=== PATIENT | female | born 1975 | race Hispanic/Latino ===

== ENCOUNTER 2018-09-25 13:45 | Emergency (ER) | payer OTHER, SELFPAY ==
[2018-09-25 14:30] LABS: Absolute Lymphocytes (CBC) 2.1 K/uL (0.7-4.9); Absolute Monocytes 0.5 K/uL (0.1-1.3); Absolute Neutrophil 3.8 K/uL (1.8-8.0); Basophils % 0.5 % (0-1.3); Eosinophils % 3.2 % (0-4.4); Hematocrit 41.5 % (36.0-45.0); Lymphocytes % 31.5 % (15.3-44.8); MPV 9.9 fL (7.6-11.3); Monocytes % 6.9 % (3.3-12.3); RBC Red Blood Cell Count 4.91 M/uL (3.86-4.86)
[2018-09-25] MEDS ORDERED: MORPHINE 4 MG/ML SYR ONE (14:34)
[2018-09-25] MEDS ORDERED: ONDANSETRON 4 MG/2 ML VIAL ONE (14:34)
[2018-09-25] MEDS ORDERED: ASPIRIN 81 MG CHEWABLE TABLET ONE (14:34)
[2018-09-25] MEDS ORDERED: NA CHLORIDE 0.9% 500 ML ONE (14:34)
[2018-09-25] MEDS ORDERED: FAMOTIDINE 20 MG/2 ML VIAL IV ONE (14:35)
[2018-09-25 14:37] LABS: Urine Blood TRACE (NEG); Urine Glucose NEGATIVE (NEG); Urine Protein NEGATIVE (NEG); Urine pH 5.5 (5.0-7.0)
[2018-09-25 14:51] LABS: ALT/SGPT 23 U/L (12-78); AST/SGOT 18 U/L (15-37); Albumin 3.4 g/dL (3.4-5.0); Alkaline Phosphatase 91 U/L (45-117); BUN Blood Urea Nitrogen 13 mg/dL (7-18); Bicarbonate 27 mmol/L (21-32); Bilirubin Direct < 0.1 mg/dL (0-0.2); Bilirubin Total 0.1 mg/dL (0.2-1.0); Glucose Level 91 mg/dL (74-106); Lipase 99 U/L (73-393); Potassium 3.9 mmol/L (3.5-5.1); Protein, Total 7.3 g/dL (6.4-8.2); Sodium Level 143 mmol/L (136-145)
--- NOTE | 2018-09-25 15:10 | RAD REPORT ---
EXAM DESCRIPTION: US - Abdomen Exam Limited - 09/25/2018 2:40 pm CLINICAL HISTORY: Abdominal pain. COMPARISON: None. FINDINGS: Multiple gallstones. Gallbladder wall is not thickened. Common bile duct measures 7 millimeters. Several small stones within the duct IMPRESSION: Cholelithiasis without evidence of cholecystitis Choledocholithiasis with mild dilatation of the common bile duct
[2018-09-25 15:11] LABS: Troponin (Emerg Dept Use Only) < 0.02 ng/mL (0.0-0.045)
--- NOTE | 2018-09-25 16:02 | EDPHYS ---
Physician Documentation [facility] Name: Cari Blanchard Age: 43 yrs Sex: Female : 1975 Arrival Date: 09/25/2018 Time: 13:48 Bed 5 Private MD: Shree Nunn ED Physician José Miguel Wyman HPI: 09/25 14:20 This 43 yrs old Female presents to ER via Ambulatory with complaints of kdr Abdominal Pain, Back Pain. 14:21 This 43 yrs old Female presents to ER via Ambulatory with complaints of kdr Abdominal Pain. 14:21 The patient presents with abdominal pain in the epigastric area, in the right upper kdr quadrant. Onset: The symptoms/episode began/occurred yesterday, at 13:00, at an unknown time. The symptoms radiate to right back. Associated signs and symptoms: Pertinent positives: nausea and vomiting, chest pain, vomiting, Pertinent negatives: blood in stools, constipation, diarrhea, dysuria, fever, headache, hematuria, nausea, palpitations, shortness of breath, vaginal discharge, vomiting blood. The symptoms are described as achy, crampy, dull, vague, waxing/waning. Modifying factors: The symptoms are alleviated by nothing, the symptoms are aggravated by coughing, food, movement, pressure, touching the area. Severity of pain: At its worst the pain was severe in the emergency department the pain has improved moderately. The patient has experienced a previous episode, approximately 1.5 months ago, The Saturday before . 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 tw2 Historical: - Allergies: 13:56 No Known Allergies; ch - Home Meds: 13:56 vitamins [Active]; ch - PMHx: 13:56 None; ch - PSHx: 13:56 ; Hysterectomy; gastric sleeve 2016, abdominoplasty 2018; ch - Immunization history:: Adult Immunizations up to date. - Social history:: Smoking status: Patient/guardian denies using tobacco, Patient/guardian denies using alcohol, street drugs. - Ebola Screening: : Patient negative for fever greater than or equal to 101.5 degrees Fahrenheit, and additional compatible Ebola Virus Disease symptoms Patient denies exposure to infectious person Patient denies travel to an Ebola-affected area in the 21 days before illness onset No symptoms or risks identified at this time. ROS: 14:21 Constitutional: Negative for fever, chills, and weight loss, Eyes: Negative for injury, kdr pain, redness, and discharge, ENT: Negative for injury, pain, and discharge, Neck: Negative for injury, pain, and swelling, Respiratory: Negative for shortness of breath, cough, wheezing, and pleuritic chest pain, Back: Negative for injury and pain, : Negative for injury, bleeding, discharge, and swelling, MS/Extremity: Negative for injury and deformity, Skin: Negative for injury, rash, and discoloration, Neuro: Negative for headache, weakness, numbness, tingling, and seizure activity. 14:21 Cardiovascular: Positive for chest pain, of the anterior aspect of left upper chest, Negative for edema, orthopnea, palpitations, paroxysmal nocturnal dyspnea. 14:21 Abdomen/GI: Positive for abdominal pain, nausea and vomiting, abdominal cramps, of the epigastric area and right upper quadrant, Negative for diarrhea, constipation, abdominal cramps, abdominal distension, anorexia, dysphagia, hematemesis, black/tarry stool, rectal pain, rectal bleeding, bowel incontinence. Exam: 14:21 Constitutional: This is a well developed, well nourished patient who is awake, alert, kdr and in no acute distress. Head/Face: Normocephalic, atraumatic. Eyes: Pupils equal round and reactive to light, extra-ocular motions intact. Lids and lashes normal. Conjunctiva and sclera are non-icteric and not injected. Cornea within normal limits. Periorbital areas with no swelling, redness, or edema. Neck: Trachea midline, no thyromegaly or masses palpated, and no cervical lymphadenopathy. Supple, full range of motion without nuchal rigidity, or vertebral point tenderness. No Meningismus. Chest/axilla: Normal chest wall appearance and motion. Nontender with no deformity. No lesions are appreciated. Cardiovascular: Regular rate and rhythm with a normal S1 and S2. No gallops, murmurs, or rubs. Normal PMI, no JVD. No pulse deficits. Respiratory: Lungs have equal breath sounds bilaterally, clear to auscultation and percussion. No rales, rhonchi or wheezes noted. No increased work of breathing, no retractions or nasal flaring. Back: No spinal tenderness. No costovertebral tenderness. Full range of motion. Skin: Warm, dry with normal turgor. Normal color with no rashes, no lesions, and no evidence of cellulitis. MS/ Extremity: Pulses equal, no cyanosis. Neurovascular intact. Full, normal range of motion. Neuro: Awake and alert, GCS 15, oriented to person, place, time, and situation. Cranial nerves II-XII grossly intact. Motor strength 5/5 in all extremities. Sensory grossly intact. Cerebellar exam normal. Normal gait. Psych: Awake, alert, with orientation to person, place and time. Behavior, mood, and affect are within normal limits. 14:21 Abdomen/GI: Inspection: abdomen appears normal, obese Vital Signs: 13:56 BP 153 / 97; Pulse 81; Resp 12; Temp 97.4; Pulse Ox 98% on R/A; Weight 81.65 kg; Height ch 5 ft. 5 in. (165.10 cm); Pain 8/10; 15:09 BP 137 / 77; Pulse 67; Resp 14; Pulse Ox 100% on R/A; tw2 16:24 BP 125 / 78; Pulse 75; Resp 18 S; Pulse Ox 99% on R/A; Pain 0/10; jl7 13:56 Body Mass Index 29.95 (81.65 kg, 165.10 cm) ch MDM: 14:21 Data reviewed: vital signs, nurses notes, lab test result(s), radiologic studies. kdr 16:01 Patient medically screened. kdr 09/25 14:00 Order name: Basic Metabolic Panel; Complete Time: 15:19 kdr 09/25 14:00 Order name: CBC with Diff; Complete Time: 15:19 kdr 09/25 14:00 Order name: Creatinine for Radiology; Complete Time: 15:19 kdr 09/25 14:00 Order name: Hepatic Function; Complete Time: 15:19 kdr 09/25 14:00 Order name: Lipase; Complete Time: 15:19 kdr 09/25 14:15 Order name: Urine Dipstick--Ancillary (enter results); Complete Time: 15:19 hb 09/25 14:16 Order name: US Abdomen Limited; Complete Time: 15:19 kdr 09/25 14:52 Order name: Troponin (Emerg Dept Use Only); Complete Time: 15:19 EDMS 09/25 14:00 Order name: IV Saline Lock; Complete Time: 14:33 kdr 09/25 14:00 Order name: Labs collected and sent; Complete Time: 14:33 kdr 09/25 14:19 Order name: EKG - Nurse/Tech; Complete Time: 14:32 kdr Administered Medications: 14:30 Drug: NS 0.9% 500 ml Volume: 500 ml; Route: IV; Rate: 1 bolus; Site: left antecubital; jl7 15:15 Follow up: IV Status: Completed infusion jl7 14:31 Drug: Pepcid 20 mg Route: IVP; Site: left antecubital; jl7 15:15 Follow up: Response: No adverse reaction jl7 14:41 Drug: Aspirin Chewable Tablet 324 mg Route: PO; jl7 15:15 Follow up: Response: No adverse reaction jl7 16:22 Not Given (Patient Refused): Zofran 4 mg IVP once; over 2 minutes jl7 16:23 Not Given (Patient Refused): morphine 4 mg IVP once jl7 Disposition: 09/25/18 16:01 Discharged to Home. Impression: Cholelithiasis, Abdominal and pelvic pain. - Condition is Stable. - Discharge Instructions: Cholelithiasis, [id number], Abdominal Pain, Adult, [id number]. - Prescriptions for Bentyl 20 mg Oral Tablet - take 1 tablet by ORAL route every 6 hours As needed; 20 tablet. Pepcid 20 mg Oral Tablet - take 1 tablet by ORAL route every 12 hours for 5 days; 10 tablet. Zofran 4 mg Oral Tablet - take 1 tablet by ORAL route every 12 hours As needed; 6 tablet. Tramadol 50 mg Oral Tablet - take 1 tablet by ORAL route every 8 hours as needed; 12 tablet. - Medication Reconciliation Form, Thank You Letter, Antibiotic Education, Prescription Opioid Use, Work release form form. - Follow up: Shree Nunn MD; When: 2 - 3 days; Reason: If symptoms return, Further diagnostic work-up, Recheck today's complaints, Continuance of care, Re-evaluation by your physician. - Problem is an acute exacerbation. - Symptoms have improved. Signatures: Dispatcher [employer] [facility] Dorothy Bonner RN RN José Miguel Wyman MD MD [facility] Delaney Fiore RN RN tw2 Satish Nunn RN RN jl7 Corrections: (The following items were deleted from the chart) 14:52 14:20 TROPONIN (EMERG DEPT USE ONLY)+C.LAB.BRZ ordered. EDAZ EDMS 16:26 16:01 09/25/2018 16:01 Discharged to Home. Impression: Cholelithiasis; Abdominal and tw2 pelvic pain. Condition is Stable. Forms are Medication Reconciliation Form, Thank You Letter, Antibiotic Education, Prescription Opioid Use. Follow up: Shree Nunn; When: 2 - 3 days; Reason: If symptoms return, Further diagnostic work-up, Recheck today's complaints, Continuance of care, Re-evaluation by your physician. Problem is an acute exacerbation. Symptoms have improved. kdr
--- NOTE | 2018-09-25 16:02 | ER ---
Nurse's Notes [facility] Name: Cari Blanchard Age: 43 yrs Sex: Female : 1975 Arrival Date: 09/25/2018 Time: 13:48 Bed 5 Private MD: Shree Nunn Diagnosis: Cholelithiasis;Abdominal and pelvic pain Presentation: 09/25 13:53 Presenting complaint: Patient states: I have a gall stone already, pain to epigastric, ch radiates into back, with vomiting. started around 1300 yesterday, vomiting x4. Transition of care: patient was not received from another setting of care. Onset of symptoms was September 24, 2018 at 13:00. Risk Assessment: Do you want to hurt yourself or someone else? Patient reports no desire to harm self or others. Initial Sepsis Screen: Does the patient meet any 2 criteria? No. Patient's initial sepsis screen is negative. Does the patient have a suspected source of infection? No. Patient's initial sepsis screen is negative. Care prior to arrival: None. 13:53 Method Of Arrival: Ambulatory 13:53 Acuity: DAVID 3 ch Triage Assessment: 13:56 General: Appears in no apparent distress. uncomfortable, Behavior is cooperative, ch appropriate for age, anxious. Pain: Complains of pain in right upper quadrant Pain currently is 8 out of 10 on a pain scale. GI: Reports upper abdominal pain, nausea, vomiting. 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 tw2 Historical: - Allergies: 13:56 No Known Allergies; ch - Home Meds: 13:56 vitamins [Active]; ch - PMHx: 13:56 None; ch - PSHx: 13:56 ; Hysterectomy; gastric sleeve 2016, abdominoplasty 2018; ch - Immunization history:: Adult Immunizations up to date. - Social history:: Smoking status: Patient/guardian denies using tobacco, Patient/guardian denies using alcohol, street drugs. - Ebola Screening: : Patient negative for fever greater than or equal to 101.5 degrees Fahrenheit, and additional compatible Ebola Virus Disease symptoms Patient denies exposure to infectious person Patient denies travel to an Ebola-affected area in the 21 days before illness onset No symptoms or risks identified at this time. Screenin:30 Abuse screen: Denies threats or abuse. Denies injuries from another. Nutritional jl7 screening: No deficits noted. Tuberculosis screening: No symptoms or risk factors identified. Fall Risk IV access (20 points). Total Cruz Fall Scale indicates No Risk (0-24 pts). Assessment: 14:15 General: Appears in no apparent distress. uncomfortable, Behavior is calm, cooperative, jl7 appropriate for age. Pain: Complains of pain in right upper quadrant Pain radiates to right mid back Pain currently is 8 out of 10 on a pain scale. Quality of pain is described as aching, Pain began A few months ago Is continuous. Neuro: Level of Consciousness is awake, alert, obeys commands, Oriented to person, place, time, situation. Cardiovascular: Heart tones S1 S2 present Patient's skin is warm and dry. Chest pain is described as mild, quality is pressure, is located in right anterior chest wall episodes are continuous. Respiratory: Airway is patent Respiratory effort is even, unlabored, Respiratory pattern is regular, symmetrical, Breath sounds are clear bilaterally. Denies shortness of breath. GI: Bowel sounds present X 4 quads. Abd is soft X 4 quads Abdomen is tender to palpation in epigastric area and right upper quadrant. : No signs and/or symptoms were reported regarding the genitourinary system. EENT: No signs and/or symptoms were reported regarding the EENT system. Derm: Skin is pink, warm \\T\\ dry. 14:30 Reassessment: Pt reports "The pain is gone now and I don't want the morphine. I'll let jl7 you know if the pain comes back.". 15:30 Reassessment: Patient appears in no apparent distress at this time. No changes from jl7 previously documented assessment. Patient and/or family updated on plan of care and expected duration. Pain level reassessed. Patient is alert, oriented x 3, equal unlabored respirations, skin warm/dry/pink. 16:26 Reassessment: Patient appears in no apparent distress at this time. No changes from tw2 previously documented assessment. Patient and/or family updated on plan of care and expected duration. Pain level reassessed. Patient is alert, oriented x 3, equal unlabored respirations, skin warm/dry/pink. Patient states feeling better. Vital Signs: 13:56 BP 153 / 97; Pulse 81; Resp 12; Temp 97.4; Pulse Ox 98% on R/A; Weight 81.65 kg; Height 5 ft. 5 in. (165.10 cm); Pain 8/10; 15:09 BP 137 / 77; Pulse 67; Resp 14; Pulse Ox 100% on R/A; tw2 16:24 BP 125 / 78; Pulse 75; Resp 18 S; Pulse Ox 99% on R/A; Pain 0/10; jl7 13:56 Body Mass Index 29.95 (81.65 kg, 165.10 cm) ED Course: 13:48 Patient arrived in ED. as 13:48 Shree Nunn MD is Private Physician. as 13:55 Triage completed. ch 13:56 Arm band placed on left wrist. Patient placed in an exam room, on a stretcher. ch 13:58 José Miguel Wyman MD is Attending Physician. kdr 13:59 Satish Nunn RN is Primary Nurse. jl7 14:15 Missed attempt(s): 20 gauge in right forearm. Bleeding controlled, band aid applied, jl7 catheter tip intact. Missed attempt(s): 20 gauge in right antecubital area. Bleeding controlled, band aid applied, catheter tip intact. 14:20 Inserted saline lock: 22 gauge in left antecubital area, using aseptic technique. jl7 ,using aseptic technique. Inserted by Candi Hanna RN. 14:24 EKG done, by lead technologist in cytogenetics. reviewed by José Miguel Wyman MD. sm3 14:30 Patient has correct armband on for positive identification. Placed in gown. Bed in low jl7 position. Call light in reach. Side rails up X 1. film tests checker on. Pulse ox on. NIBP on. Warm blanket given. 14:40 US Abdomen Limited In Process Unspecified. EDMS 16:01 Shree Nunn MD is Referral Physician. kdr 16:25 No provider procedures requiring assistance completed. IV discontinued, intact, tw2 bleeding controlled, No redness/swelling at site. Pressure dressing applied. Administered Medications: 14:30 Drug: NS 0.9% 500 ml Volume: 500 ml; Route: IV; Rate: 1 bolus; Site: left antecubital; jl7 15:15 Follow up: IV Status: Completed infusion jl7 14:31 Drug: Pepcid 20 mg Route: IVP; Site: left antecubital; jl7 15:15 Follow up: Response: No adverse reaction jl7 14:41 Drug: Aspirin Chewable Tablet 324 mg Route: PO; jl7 15:15 Follow up: Response: No adverse reaction jl7 16:22 Not Given (Patient Refused): Zofran 4 mg IVP once; over 2 minutes jl7 16:23 Not Given (Patient Refused): morphine 4 mg IVP once jl7 Outcome: 16:01 Discharge ordered by . kdr 16:25 Discharged to home ambulatory. tw2 16:25 Condition: stable 16:25 Discharge instructions given to patient, Instructed on discharge instructions, follow up and referral plans. no drinking with medication, no driving heavy equipment, medication usage, Demonstrated understanding of instructions, follow-up care, medications, Prescriptions given X 4. 16:26 Patient left the ED. tw2 Signatures: Dispatcher [employer] EDMS Dorothy Bonner, KEI RN José Miguel Wyman MD MD kdr Martinez, Amelia as Wise, Tara, RN RN tw2 Satish Nunn RN RN jl7 Lisa Richard sm3 Corrections: (The following items were deleted from the chart) 15:16 14:32 Zofran 4 mg IVP in left antecubital 7 jl7 15:16 14:34 morphine 4 mg IVP in left antecubital jl7 jl7 16:24 15:30 BP 125 / 78; Pulse 75bpm; Resp 18bpm; Spontaneous; Pulse Ox 99% RA; Pain 0/10; [id number]
--- NOTE | 2018-09-26 07:49 | EKG ---
Test Date: 2018-09-25 Test Time: 14:15:04 [facility] Teacher: CELSA MEASUREMENT RESULTS: Intervals: Rate: 72 NH: 144 QRSD: 88 QT: 378 QTc: 413 Frederick: P: 47 NH: 144 QRS: 112 T: 42 INTERPRETIVE STATEMENTS: Normal sinus rhythm Left posterior fascicular block Cannot rule out Inferior infarct, age undetermined Abnormal ECG No previous ECG available for comparison Electronically Signed On 09-26-18 07:46:17 AUDIT CLERKS SUPERVISOR by Vadim Huff
== END 2018-09-25 16:26 | disposition home or self-care (01) ==
LOC: ER 13:45
DX: K80.20 Calculus of gallbladder without cholecystitis without obstruction (principal)
CPT/HCPCS: 36415; 76705; 80048; 80076; 81003; 83690; 84484; 85025; 93005; 96361; 96374; 99284; J2405

== ENCOUNTER 2020-08-14 10:06 | Emergency (ER) | payer OTHER ==
[2020-08-14] MEDS ORDERED: NA CHLORIDE 0.9% 1,000 ML ONE (11:15)
[2020-08-14] MEDS ORDERED: KETOROLAC 30 MG/ML INJ ONE (11:15)
[2020-08-14] MEDS ORDERED: HYDROCODONE/CHLORPHEN 5 ML/OSYR ONE (11:15)
[2020-08-14 11:18] LABS: Absolute Lymphocytes (CBC) 0.9 K/uL (0.7-4.9); Basophils % 0.2 % (0-1.3); Hematocrit 39.9 % (36.0-45.0); Lymphocytes % 14.5 % (15.3-44.8); MPV 9.8 fL (7.6-11.3); RBC Red Blood Cell Count 4.95 M/uL (3.86-4.86)
[2020-08-14 11:25] LABS: Protime INR 1.06
[2020-08-14 11:29] LABS: ALT/SGPT 22 U/L (12-78); AST/SGOT 32 U/L (15-37); Alkaline Phosphatase 70 U/L (45-117); BUN Blood Urea Nitrogen 18 mg/dL (7-18); Bicarbonate 26 mmol/L (21-32); Bilirubin Direct < 0.1 mg/dL (0-0.2); Bilirubin Total 0.3 mg/dL (0.2-1.0); Glucose Level 106 mg/dL (74-106); Magnesium 2.3 mg/dL (1.8-2.4); NT PRO-BNP 18 pg/mL (<125); Potassium 3.6 mmol/L (3.5-5.1); Protein, Total 7.3 g/dL (6.4-8.2); Sodium Level 138 mmol/L (136-145); Troponin (Emerg Dept Use Only) < 0.02 ng/mL (0.0-0.045)
--- NOTE | 2020-08-14 11:36 | RAD REPORT ---
EXAM DESCRIPTION: RAD - Chest Single View - 08/14/2020 11:25 am CLINICAL HISTORY: Chest pain;Cough Chest pain. COMPARISON: CHEST SINGLE VIEW dated 08/15/2015; CHEST PA AND LAT 2 VIEW dated 01/19/2015 FINDINGS: Portable technique limits examination quality. The lungs are underinflated with mild to moderate bilateral interstitial lung opacities, greater on t he left, most compatible with viral pneumonitis/ bronchitis. The heart is normal in size. No displace d fractures.
[2020-08-14] MEDS ORDERED: ALBUTEROL INHALER 60 PUFF/8 GM IH ONE (12:15)
--- NOTE | 2020-08-14 12:31 | EDPHYS ---
Physician Documentation [facility] Name: Cari Mccarty Age: 45 yrs Sex: Female : 1975 Arrival Date: 08/14/2020 Time: 10:09 Bed 18 Private MD: ED Physician Moi Akhtar HPI: 08/14 10:45 This 45 yrs old Female presents to ER via Ambulatory with complaints of cp COVID+, Cough, Chest Pain. 10:45 The patient or guardian reports chest pain that is located primarily in the anterior cp chest wall. Onset: yesterday. Associated signs and symptoms: Pertinent positives: cough, shortness of breath, Pertinent negatives: abdominal pain, diaphoresis, lower extremity pain, lower extremity swelling, syncope, vomiting. 10:45 Patient reports she tested positive for COVID-19 this past Saturday. Currently taking cp prednisone and Zithromax. 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 - Social history:: Smoking status: Patient denies any tobacco usage or history of. ROS: 10:50 Constitutional: Negative for fever, poor PO intake. cp 10:50 Eyes: Negative for injury, pain, redness, and discharge. cp 10:50 ENT: Negative for ear pain, sore throat, difficulty swallowing, difficulty handling secretions. 10:50 Cardiovascular: Positive for chest pain, with cough, Negative for edema, palpitations. 10:50 Respiratory: Positive for cough, "sounds productive", shortness of breath, on exertion. 10:50 Abdomen/GI: Negative for abdominal pain, vomiting, diarrhea, constipation. 10:50 Skin: Negative for rash. 10:50 Neuro: Negative for altered mental status, weakness. 10:50 All other systems are negative. Exam: 10:30 ECG was reviewed by the Attending Physician. cp 10:55 Constitutional: The patient appears in no acute distress, alert, awake, cp non-diaphoretic, non-toxic, well developed, well nourished, uncomfortable. 10:55 Head/Face: Normocephalic, atraumatic. cp 10:55 Eyes: Periorbital structures: appear normal, Conjunctiva: normal, no exudate, no injection, Sclera: no appreciated abnormality, Lids and lashes: appear normal, bilaterally. 10:55 ENT: External ear(s): are unremarkable, Ear canal(s): are normal, clear, TM's: dullness, bilaterally, Nose: is normal, Mouth: Lips: moist, Oral mucosa: moist, Posterior pharynx: Airway: no evidence of obstruction, patent. 10:55 Neck: ROM/movement: is normal, is supple, without pain, no range of motions limitations, no meningismus. 10:55 Chest/axilla: Inspection: normal, Palpation: is normal, no crepitus, no tenderness. 10:55 Cardiovascular: Rate: normal, Rhythm: regular, Edema: is not appreciated, JVD: is not appreciated. 10:55 Respiratory: the patient does not display signs of respiratory distress, Respirations: labored breathing, that is mild, intercostal retractions, are absent, Breath sounds: bronchial sounds, that are mild, are heard diffusely, decreased breath sounds, are not appreciated, stridor, is not appreciated, wheezing: is not appreciated. 10:55 Abdomen/GI: Inspection: abdomen appears normal, Palpation: abdomen is soft and non-tender, in all quadrants. 10:55 Back: pain, is absent, ROM is normal. 10:55 Neuro: Orientation: to person, place \\T\\ time. Mentation: is normal, Motor: moves all fours, strength is normal. Vital Signs: 10:15 Weight 87.09 kg; Height 5 ft. 5 in. (165.10 cm); sv 10:20 BP 102 / 67; Pulse 95; Resp 20; Pulse Ox 95% ; Pain 0/10; ll1 12:59 BP 104 / 66; Pulse 92; Resp 20; Temp 98.6; Pulse Ox 97% ; Pain 0/10; ll1 10:15 Body Mass Index 31.95 (87.09 kg, 165.10 cm) sv MDM: 10:29 Patient medically screened. cp 11:00 Differential diagnosis: acute myocardial infarction, acute pericarditis, chest wall cp pain, pleurisy, pneumonia, pneumothorax, pulmonary embolus. 12:30 Data reviewed: vital signs, nurses notes, lab test result(s), EKG, radiologic studies, cp plain films. 12:30 Test interpretation: by ED physician or midlevel provider: ECG, plain radiologic cp studies. Counseling: I had a detailed discussion with the patient and/or guardian regarding: the historical points, exam findings, and any diagnostic results supporting the discharge/admit diagnosis, lab results, radiology results, to return to the emergency department if symptoms worsen or persist or if there are any questions or concerns that arise at home. Response to treatment: the patient's symptoms have markedly improved after treatment, and as a result, I will discharge patient. 12:30 ED course: VSS. Patient reports symptoms improved. No signs of respiratory distress and cp patient appears non-toxic. Will discharge to home for continued monitoring. Oxygen sats 95% on RA. 08/14 10:38 Order name: Basic Metabolic Panel; Complete Time: 11:36 cp 08/14 10:38 Order name: CBC with Diff; Complete Time: 11:36 08/14 10:38 Order name: LFT's; Complete Time: 11:36 cp 08/14 10:38 Order name: Magnesium; Complete Time: 11:36 cp 08/14 10:38 Order name: NT PRO-BNP; Complete Time: 11:36 cp 08/14 10:38 Order name: PT-INR; Complete Time: 11:36 cp 08/14 10:38 Order name: Troponin (emerg Dept Use Only); Complete Time: 11:36 cp 08/14 10:38 Order name: XRAY Chest (1 view); Complete Time: 12:23 cp 08/14 10:38 Order name: D-Dimer; Complete Time: 11:36 cp 08/14 10:38 Order name: Influenza Screen (a \\T\\ B); Complete Time: 12:23 cp 08/14 10:38 Order name: EKG; Complete Time: 10:39 cp 08/14 10:38 Order name: Cardiac monitoring; Complete Time: 10:57 cp 08/14 10:38 Order name: EKG - Nurse/Tech; Complete Time: 10:57 cp 08/14 10:38 Order name: IV Saline Lock; Complete Time: 10:57 cp 08/14 10:38 Order name: Labs collected and sent; Complete Time: 10:57 cp 08/14 10:38 Order name: O2 Per Protocol; Complete Time: 10:57 cp 08/14 10:38 Order name: O2 Sat Monitoring; Complete Time: 10:57 cp 08/14 10:38 Order name: Urine Dipstick-Ancillary (obtain specimen); Complete Time: 13:01 cp EC:30 Rate is 103 beats/min. Rhythm is regular. ME interval is normal. QRS interval is cp normal. QT interval is normal. T waves are Inverted in lead aVR. Interpreted by me. Reviewed by me. Administered Medications: 11:08 Drug: NS 0.9% 1000 ml Route: IV; Rate: 1 bolus; Site: left antecubital; 1 13:00 Follow up: Response: No adverse reaction; RASS: Alert and Calm (0); IV Status: ll1 Completed infusion; IV Intake: 1000ml 11:08 Drug: Tussionex Pennkinetic ER 5 ml Route: PO; ll1 13:02 Follow up: Response: No adverse reaction; RASS: Alert and Calm (0) 1 11:08 Drug: TORadol - Ketorolac 15 mg {Note: rass 0.} Route: IVP; Site: left antecubital; 1 13:02 Follow up: Response: No adverse reaction; RASS: Alert and Calm (0) ll1 12:03 Drug: Albuterol HFA Inhaler 2 puffs Route: Inhalation; ll1 13:00 Follow up: Response: No adverse reaction; RASS: Alert and Calm (0) ll1 Disposition: 13:16 Co-signature as Attending Physician, Moi Akhtar MD. rn Disposition: 08/14/20 12:30 Discharged to Home. Impression: Coronavirus infection, unspecified, Pneumonia due to other specified infectious organisms. - Condition is Stable. - Discharge Instructions: COVID-19. - Prescriptions for Albuterol Sulfate 90 mcg/actuation - inhale 1-2 puff by INHALATION route every 4-6 hours; 1 Inhaler. Guaifenesin AC 10- 100 mg/5 mL Oral Liquid - take 10 milliliters by ORAL route every 4 hours As needed; 200 milliliter. - Medication Reconciliation Form, Thank You Letter, Antibiotic Education, Prescription Opioid Use form. - Follow up: Private Physician; When: 2 - 3 days; Reason: Worsening of condition. - Problem is new. - Symptoms have improved. Signatures: Dispatcher [employer] Comfort Brenner RN RN Moi Akhtar MD MD rn Page, Corey, PA PA cp Lewis, Lynsay RN RN ll1 Corrections: (The following items were deleted from the chart) 13:01 10:38 Urine Test ordered. cp ll1 13:02 12:30 08/14/2020 12:30 Discharged to Home. Impression: Coronavirus infection, ll1 unspecified; Pneumonia due to other specified infectious organisms. Condition is Stable. Forms are Medication Reconciliation Form, Thank You Letter, Antibiotic Education, Prescription Opioid Use. Follow up: Private Physician; When: 2 - 3 days; Reason: Worsening of condition. Problem is new. Symptoms have improved. cp
--- NOTE | 2020-08-14 12:31 | ER ---
Nurse's Notes [facility] Name: Cari Mccarty Age: 45 yrs Sex: Female : 1975 Arrival Date: 08/14/2020 Time: 10:09 Bed 18 Private MD: Diagnosis: Coronavirus infection, unspecified;Pneumonia due to other specified infectious organisms Presentation: 08/14 10:15 Chief complaint: Patient states: cough, chest pain, fever Tmax 100 since Saturday. sv COVID-19+ (tested on Saturday). Coronavirus screen: Client denies travel out of the [place] in the last 14 days. Client reports previous positive COVID test result. Date of collection: August 09, 2020. Ebola Screen: No symptoms or risks identified at this time. Risk Assessment: Do you want to hurt yourself or someone else? Patient reports no desire to harm self or others. Onset of symptoms was August 09, 2020. 10:15 Method Of Arrival: Ambulatory sv 10:15 Acuity: DAVID 3 sv 10:20 Initial Sepsis Screen: Does the patient meet any 2 criteria? HR > 90 bpm. No. Patient's ll1 initial sepsis screen is negative. Does the patient have a suspected source of infection? Yes: Productive cough/pneumonia. 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 - Social history:: Smoking status: Patient denies any tobacco usage or history of. Screenin:10 Abuse screen: Denies threats or abuse. Nutritional screening: No deficits noted. ll1 Tuberculosis screening: No symptoms or risk factors identified. Fall Risk None identified. IV access (20 points). Total Cruz Fall Scale indicates No Risk (0-24 pts). Assessment: 11:11 General: Appears ill, Behavior is calm, cooperative, appropriate for age. Pain: ll1 Complains of pain in chest Pain does not radiate. Quality of pain is described as aching, Pain began 2-3 days ago. Is episodic, Aggravated by cough. Neuro: No deficits noted. Cardiovascular: Reports chest pain, Heart tones S1 S2 Capillary refill < 3 seconds Clubbing of nail beds is absent Patient's skin is warm and dry. Respiratory: Reports cough that is Airway is patent Trachea midline Respiratory effort is even, unlabored, Respiratory pattern is regular, symmetrical, Breath sounds are clear bilaterally. GI: Abdomen is flat, Bowel sounds present X 4 quads. Abd is soft and non tender X 4 quads. Reports diarrhea. 12:10 Reassessment: Patient and/or family updated on plan of care and expected duration. Pain ll1 level reassessed. Patient is alert, oriented x 3, equal unlabored respirations, skin warm/dry/pink. Vital Signs: 10:15 Weight 87.09 kg; Height 5 ft. 5 in. (165.10 cm); sv 10:20 BP 102 / 67; Pulse 95; Resp 20; Pulse Ox 95% ; Pain 0/10; ll1 12:59 BP 104 / 66; Pulse 92; Resp 20; Temp 98.6; Pulse Ox 97% ; Pain 0/10; ll1 10:15 Body Mass Index 31.95 (87.09 kg, 165.10 cm) sv ED Course: 10:09 Patient arrived in ED. mr 10:11 Leandro Yoo PA is PHCP. cp 10:11 Moi Akhtar MD is Attending Physician. cp 10:13 Henrik Andino, KEI is Primary Nurse. ll1 10:14 Arm band placed on Patient placed in an exam room, on a stretcher. ll1 10:16 Triage completed. sv 10:27 EKG done, by ED staff, reviewed by Leandro ANGUIANO. dh3 10:30 Inserted saline lock: 20 gauge in left antecubital area, using aseptic technique. Blood ll1 collected. 11:11 Patient has correct armband on for positive identification. Bed in low position. Call ll1 light in reach. Side rails up X2. childcare aide on. Pulse ox on. NIBP on. 11:12 Patient maintains SpO2 saturation greater than 95% on room air. ll1 11:26 XRAY Chest (1 view) In Process Unspecified. EDMS 13:00 IV discontinued, intact, bleeding controlled, No redness/swelling at site. Pressure ll1 dressing applied. 13:00 No provider procedures requiring assistance completed. ll1 Administered Medications: 11:08 Drug: NS 0.9% 1000 ml Route: IV; Rate: 1 bolus; Site: left antecubital; 1 13:00 Follow up: Response: No adverse reaction; RASS: Alert and Calm (0); IV Status: ll1 Completed infusion; IV Intake: 1000ml 11:08 Drug: Tussionex Pennkinetic ER 5 ml Route: PO; 1 13:02 Follow up: Response: No adverse reaction; RASS: Alert and Calm (0) 1 11:08 Drug: TORadol - Ketorolac 15 mg {Note: rass 0.} Route: IVP; Site: left antecubital; 1 13:02 Follow up: Response: No adverse reaction; RASS: Alert and Calm (0) 1 12:03 Drug: Albuterol HFA Inhaler 2 puffs Route: Inhalation; 1 13:00 Follow up: Response: No adverse reaction; RASS: Alert and Calm (0) [facility] Intake: 13:00 IV: 1000ml; Total: 1000ml. [facility] Outcome: 12:30 Discharge ordered by . abbey 13:02 Patient left the ED. [facility] 13:02 Discharged to home ambulatory. 1 13:02 Condition: stable 13:02 Discharge instructions given to patient, Instructed on discharge instructions, follow up and referral plans. medication usage, Demonstrated understanding of instructions, follow-up care, medications, Prescriptions given X 2. Signatures: Dispatcher [employer] Comfort Brenner, RN Alicia Montemayor Corey, PA PA cp Herrera, Deanna [facility] Henrik Andino RN RN [facility]
[2020-08-14] MEDS ORDERED: ALBUTEROL 2.5 MG/3 ML NEB SOL ONE (13:54)
[2020-08-14 16:48] VITALS: BP 104/66; TEMP 98.6; O2SAT 97
== END 2020-08-14 13:02 | disposition home or self-care (01) ==
LOC: ER 10:06
DX: U07.1 COVID-19 (principal); J16.8 Pneumonia due to other specified infectious organisms
CPT/HCPCS: 96361; 93005; 85025; 80048; 36415; 83735; 85610; 85379; 80076; 84484; 83880; 87804 ×2; 71045; 96374; 99285; J7030

== ENCOUNTER 2022-11-13 19:55 | Emergency (ER) | payer OTHER ==
--- OUTSIDE RECORDS SUMMARY | 2022-11-13 19:58 | XMS REPORT | Continuity of Care Document ---
:1975 Author Organization [facility] t Address [address] [place] [address] Dr. 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 Allergies, Adverse Reactions, Alerts This patient has no known allergies or adverse reactions. Medications This patient has no known medications. Procedures This patient has no known procedures. Encounters Start End Encounter Admission Attending Care Care Encounter Source Date/Time Date/Time Type Type Clinicians Facility Department ID 2022-12-03 2022-12-03 Outpatient KATHY HUGO [id number] Ada Gibbons 10:30:00 10:30:00 BRANDEN dial Results This patient has no known results.
[2022-11-13 21:56] LABS: Absolute Lymphocytes (CBC) 2.6 K/uL (0.7-4.9); Hematocrit 36.8 % (36.0-45.0); Lymphocytes % 39.4 % (15.3-44.8); MCV 81.3 fL (80-100); MPV 8.7 fL (7.6-11.3); RBC Red Blood Cell Count 4.52 M/uL (3.86-4.86)
[2022-11-13 21:58] LABS: Protime INR 0.98
[2022-11-13 22:09] LABS: Magnesium 2.4 mg/dL (1.6-2.4); Potassium 3.6 mmol/L (3.5-5.1); Troponin High Sensitivity 4.3 pg/mL (<58.9)
--- NOTE | 2022-11-13 22:12 | RAD REPORT ---
EXAM DESCRIPTION: CT - Head Brain Wo Cont - 11/13/2022 10:03 pm CLINICAL HISTORY: HEADACHE COMPARISON: No comparisons TECHNIQUE: Noncontrast head CT images ad were obtained without IV contrast. Multiplanar reformats we re generated and reviewed. All CT scans are performed using dose optimization technique as appropriate and may include automated exposure control or mA/KV adjustment according to patient size. FINDINGS: No intracranial hemorrhage, mass, or edema. Midline structures are unremarkable. Normal ventricular caliber for age. Puga-white matter differentiation is preserved, without evidence of acute infarct. No abnormal extra- axial fluid collections. Mastoid air cells and visualized portions of the paranasal sinuses are clear. No acute bony findings. IMPRESSION: No evidence of an acute intracranial process.
[2022-11-13] MEDS ORDERED: lisinopriL 20 MG TAB ONE (23:11)
[2022-11-13] MEDS ORDERED: KETOROLAC 30 MG/ML INJ ONE (23:11)
[2022-11-13] MEDS ORDERED: NA CHLORIDE 0.9% 50 ML ONE (23:11)
[2022-11-13] MEDS ORDERED: DIPHENHYDRAMINE 50 MG/ML VIAL ONE (23:11)
[2022-11-13] MEDS ORDERED: METOCLOPRAMIDE 10 MG/2mL INJ ONE (23:11)
--- NOTE | 2022-11-13 23:58 | ER ---
Nurse's Notes [facility] Name: Cari Mccarty Age: 47 yrs Sex: Female : 1975 Arrival Date: 11/13/2022 Time: 19:59 Bed 9 Private MD: Diagnosis: Hypertensive heart disease without heart failure;Headache Presentation: 11/13 20:10 Chief complaint: Patient states: Posterior headache pain 9 that radiates to neck,onset pf1 3 days. Patient stated having elevated BP and is currently out of her Lisinopril medication for 4 months. Patient stated has an appointment Dr. Osman on December 03 to have to Lisinopril refill. Patient denies any Chest pain. Coronavirus screen: Vaccine status: Patient reports receiving the 2nd dose of the covid vaccine. 3 doses. Ebola Screen: Patient negative for fever greater than or equal to 101.5 degrees Fahrenheit, and additional compatible Ebola Virus Disease symptoms. Initial Sepsis Screen: Does the patient meet any 2 criteria? No. Patient's initial sepsis screen is negative. Does the patient have a suspected source of infection? No. Patient's initial sepsis screen is negative. Risk Assessment: Do you want to hurt yourself or someone else? Patient reports no desire to harm self or others. 20:10 Method Of Arrival: Ambulatory pf1 20:10 Acuity: DAVID 3 pf1 11/14 00:05 Onset of symptoms was November 13, 2022. eh3 Triage Assessment: 00:04 Pain: Also complains of. eh3 Historical: - Allergies: 11/13 20:15 No Known Allergies; pf1 - Immunization history:: Adult Immunizations up to date. - Social history:: Smoking status: unknown. Screenin:45 [facility] ED Fall Risk Assessment (Adult) Score/Fall Risk Level 0 - 2 = Low Risk. Abuse eh3 screen: Denies threats or abuse. Denies injuries from another. Nutritional screening: No deficits noted. Tuberculosis screening: No symptoms or risk factors identified. Assessment: 21:45 General: Appears in no apparent distress. uncomfortable, Behavior is cooperative, eh3 appropriate for age. Pain: Complains of pain in head. Neuro: Level of Consciousness is awake, alert, obeys commands, Oriented to person, place, time, situation. Cardiovascular: Capillary refill < 3 seconds Patient's skin is warm and dry. Respiratory: Airway is patent Respiratory effort is even, unlabored, Respiratory pattern is regular, symmetrical. GI: No signs and/or symptoms were reported involving the gastrointestinal system. Abdomen is round non-distended. : No signs and/or symptoms were reported regarding the genitourinary system. EENT: No signs and/or symptoms were reported regarding the EENT system. Derm: No signs and/or symptoms reported regarding the dermatologic system. Skin is pink, warm \T\ dry. Musculoskeletal: No signs and/or symptoms reported regarding the musculoskeletal system. Circulation, motion, and sensation intact. Range of motion: intact in all extremities. 22:45 Reassessment: Patient appears in no apparent distress at this time. Patient and/or 3 family updated on plan of care and expected duration. Pain level reassessed. Patient is alert, oriented x 3, equal unlabored respirations, skin warm/dry/pink. 23:45 Reassessment: Patient appears in no apparent distress at this time. Patient and/or 3 family updated on plan of care and expected duration. Pain level reassessed. Patient is alert, oriented x 3, equal unlabored respirations, skin warm/dry/pink. Patient states symptoms have improved. Vital Signs: 20:10 BP 168 / 92; Pulse 80; Resp 18; Temp 97.8; Pulse Ox 98% on R/A; Weight 81.65 kg; Height pf1 5 ft. 5 in. (165.10 cm); Pain 9/10; 21:45 BP 149 / 94; Pulse 81; Resp 14; Pulse Ox 97% on R/A; eh3 22:45 BP 173 / 92; Pulse 83; Resp 17; Pulse Ox 98% on R/A; eh3 23:45 BP 139 / 88; Pulse 76; Resp 16; Pulse Ox 98% on R/A; eh3 20:10 Body Mass Index 29.95 (81.65 kg, 165.10 cm) pf1 Vitals: 21:45 Cardiac Rhythm Assessment Sinus rhythm. 3 ED Course: 19:59 Patient arrived in ED. ja2 20:15 Triage completed. pf1 21:32 Leandro Yoo PA is PHCP. cp 21:32 José Miguel Wyman MD is Attending Physician. cp 21:43 Arm band placed on. pf1 21:43 No provider procedures requiring assistance completed. Inserted saline lock: 20 gauge pf1 in left antecubital area, using aseptic technique. Blood collected. 21:45 Hope Lomax, RN is Primary Nurse. eh3 21:45 Patient has correct armband on for positive identification. Bed in low position. Call 3 light in reach. Side rails up X2. Adult w/ patient. Client placed on continuous cardiac and pulse oximetry monitoring. NIBP monitoring applied. Door closed. Noise minimized. Lights dimmed. Warm blanket given. 21:45 Basic Metabolic Panel Sent. pf1 21:45 CBC with Diff Sent. pf1 21:45 Magnesium Sent. pf1 21:45 NT PRO-BNP Sent. pf1 21:45 PT-INR Sent. pf1 21:45 Troponin HS Sent. pf1 11/14 00:07 IV discontinued, intact, bleeding controlled, No redness/swelling at site. Pressure eh3 dressing applied. Administered Medications: 11/13 23:19 Drug: Lisinopril 20 mg Route: PO; eh3 23:56 Follow up: Response: Blood pressure is lowered 3 23:19 Drug: Ketorolac 15 mg Route: IVP; Site: left antecubital; eh3 23:56 Follow up: Response: Marked relief of symptoms 3 23:19 Drug: Reglan (metoCLOPramide) 10 mg Route: IVP; Site: left antecubital; eh3 23:56 Follow up: Response: Marked relief of symptoms eh3 23:19 Drug: Benadryl (diphenhydrAMINE) 25 mg Route: IVP; Site: left antecubital; eh3 23:56 Follow up: Response: Marked relief of symptoms eh3 Medication: 11/14 00:06 VIS not applicable for this client. eh3 Outcome: 11/13 23:57 Discharge ordered by . abbey 11/14 00:07 Discharged to home ambulatory, with significant other. eh3 Condition: stable Discharge instructions given to patient, significant other, Instructed on discharge instructions, follow up and referral plans. medication usage, Demonstrated understanding of instructions, follow-up care, medications, Prescriptions given X 1. 00:15 Patient left the ED. eh3 Signatures: Leandro Yoo PA PA cp Alexander, Jessica ja Hope Lomax, KEI RN eh3 Shira del valle RN RN pf1
--- NOTE | 2022-11-13 23:58 | EDPHYS ---
Physician Documentation [facility] Name: Cari Mccarty Age: 47 yrs Sex: Female : 1975 Arrival Date: 11/13/2022 Time: 19:59 Bed 9 Private MD: ED Physician José Miguel Wyman HPI: 11/13 21:45 This 47 yrs old Female presents to ER via Ambulatory with complaints of cp Headache, High Blood Pressure, Neck Pain, >24Hrs Old, Breathing Difficulty. 21:45 The patient complains of pain to the posterior aspect of head. The patient describes cp the headache as aching. Onset: The symptoms/episode began/occurred 3 day(s) ago. Associated signs and symptoms: Pertinent positives: weakness, neck pain, Pertinent negatives: altered mental status, fever, malaise, neck stiffness, paresthesias, vision changes. Severity of symptoms: in the emergency department the pain is unchanged, despite home interventions. Patient reports history of HTN and stopping prescribed Lisinopril several months ago. Reports elevated blood pressure and chest tightness. Historical: - Allergies: 20:15 No Known Allergies; pf1 - Immunization history:: Adult Immunizations up to date. - Social history:: Smoking status: unknown. ROS: 21:50 Constitutional: Negative for body aches, chills, fever, poor PO intake. cp 21:50 Eyes: Negative for injury, pain, redness, and discharge. cp 21:50 ENT: Negative for drainage from ear(s), ear pain, sore throat, difficulty swallowing, difficulty handling secretions. 21:50 Cardiovascular: Positive for chest tightness, Negative for edema, palpitations. 21:50 Respiratory: Negative for cough, shortness of breath, wheezing. 21:50 Abdomen/GI: Negative for abdominal pain, vomiting, diarrhea, constipation. 21:50 Back: Negative for pain at rest, pain with movement. 21:50 Neuro: Positive for headache, weakness, Negative for altered mental status, dizziness, numbness, syncope. 21:50 All other systems are negative. Exam: 21:36 ECG was reviewed by the Attending Physician. cp 21:55 Constitutional: The patient appears in no acute distress, alert, awake, cp non-diaphoretic, non-toxic, well developed, well nourished, overweight 21:55 Head/Face: Normocephalic, atraumatic. cp 21:55 Eyes: Periorbital structures: appear normal, Pupils: equal, round, and reactive to light and accomodation, Extraocular movements: intact throughout, Conjunctiva: normal, no exudate, no injection, Sclera: no appreciated abnormality, Lids and lashes: appear normal, bilaterally. 21:55 ENT: External ear(s): are unremarkable, Ear canal(s): are normal, clear, TM's: bulging, is not appreciated, bilaterally, dullness, bilaterally, erythema, is not appreciated, bilaterally, Nose: is normal, Mouth: Lips: moist, Oral mucosa: pink and intact, moist, Posterior pharynx: is normal, airway is patent, no erythema, no exudate. 21:55 Neck: ROM/movement: pain, that is mild, with any movement, limited range of motion, is not appreciated, Meningeal signs: are not present, nuchal rigidity, is not appreciated. 21:55 Chest/axilla: Inspection: normal. 21:55 Cardiovascular: Rate: normal, Rhythm: regular, Edema: is not appreciated, JVD: is not appreciated. 21:55 Respiratory: the patient does not display signs of respiratory distress, Respirations: normal, no use of accessory muscles, no retractions, labored breathing, is not present, Breath sounds: are clear throughout, no decreased breath sounds, no stridor, no wheezing. 21:55 Abdomen/GI: Inspection: abdomen appears normal, Palpation: abdomen is soft and non-tender, in all quadrants. 21:55 Back: pain, is absent, ROM is normal. 21:55 Skin: cellulitis, is not appreciated, no rash present. 21:55 Neuro: Orientation: to person, place \T\ time. Mentation: is normal, Cerebellar function: is grossly normal, Motor: moves all fours, strength is normal, Sensation: is normal. Vital Signs: 20:10 BP 168 / 92; Pulse 80; Resp 18; Temp 97.8; Pulse Ox 98% on R/A; Weight 81.65 kg; Height pf1 5 ft. 5 in. (165.10 cm); Pain 9/10; 21:45 BP 149 / 94; Pulse 81; Resp 14; Pulse Ox 97% on R/A; eh3 22:45 BP 173 / 92; Pulse 83; Resp 17; Pulse Ox 98% on R/A; eh3 23:45 BP 139 / 88; Pulse 76; Resp 16; Pulse Ox 98% on R/A; eh3 20:10 Body Mass Index 29.95 (81.65 kg, 165.10 cm) pf1 MDM: 21:38 Patient medically screened. cp 22:00 Differential diagnosis: hypertensive headache, hyponatremia, intracerebral hemorrhage, cp migraine, neoplasm, sinusitis, subarachnoid bleed, tension headache. 23:56 Data reviewed: vital signs, nurses notes, lab test result(s), EKG, radiologic studies, cp CT scan, plain films. 23:56 Consideration of Admission/Observation Escalation of care including cp admission/observation considered. I considered the following discharge prescriptions or medication management in the emergency department Medications were administered in the Emergency Department. See MAR. Test considered but Not performed: CT: chest. Care significantly affected by the following chronic conditions: Hypertension. Counseling: I had a detailed discussion with the patient and/or guardian regarding: the historical points, exam findings, and any diagnostic results supporting the discharge/admit diagnosis, lab results, radiology results, the need for outpatient follow up, a family practitioner, to return to the emergency department if symptoms worsen or persist or if there are any questions or concerns that arise at home. Response to treatment: the patient's symptoms have markedly improved after treatment, and as a result, I will discharge patient. 11/13 21:33 Order name: Basic Metabolic Panel cp 11/13 21:33 Order name: CBC with Diff cp 11/13 21:33 Order name: Magnesium cp 11/13 21:33 Order name: NT PRO-BNP cp 11/13 21:33 Order name: PT-INR cp 11/13 21:33 Order name: Troponin HS cp 11/13 21:33 Order name: CT Head Brain wo Cont cp 11/13 21:33 Order name: XRAY Chest (1 view) cp 11/13 21:58 Order name: CBC with Automated Diff; Complete Time: 22:53 EDMS 11/13 23:51 Interpretation: Reviewed. cp 11/13 21:58 Order name: Protime (+INR); Complete Time: 22:53 EDMS 11/13 23:52 Interpretation: Within normal limits. cp 11/13 22:09 Order name: Basic Metabolic Panel; Complete Time: 22:53 EDMS 11/13 22:09 Order name: Troponin High Sensitivity; Complete Time: 22:53 EDMS 11/13 22:09 Order name: NT PRO-BNP; Complete Time: 22:53 EDMS 11/13 22:09 Order name: Magnesium; Complete Time: 22:53 EDMS 11/13 21:33 Order name: EKG; Complete Time: 21:34 cp 11/13 21:33 Order name: Cardiac monitoring; Complete Time: 23:01 cp 11/13 21:33 Order name: EKG - Nurse/Tech; Complete Time: 21:43 cp 11/13 21:33 Order name: IV Saline Lock; Complete Time: 21:43 cp 11/13 21:33 Order name: Labs collected and sent; Complete Time: :43 cp 11/13 21:33 Order name: O2 Per Protocol; Complete Time: 23:01 cp 11/13 21:33 Order name: O2 Sat Monitoring; Complete Time: 23:01 cp 11/13 22:12 Order name: CT; Complete Time: 22:53 EDMS EC:36 Rate is 77 beats/min. Rhythm is regular. WV interval is normal. QRS interval is normal. cp QT interval is normal. T waves are Inverted in lead aVR. Interpreted by me. Reviewed by me. Administered Medications: 23:19 Drug: Lisinopril 20 mg Route: PO; 3 23:56 Follow up: Response: Blood pressure is lowered eh3 23:19 Drug: Ketorolac 15 mg Route: IVP; Site: left antecubital; eh3 23:56 Follow up: Response: Marked relief of symptoms eh3 23:19 Drug: Reglan (metoCLOPramide) 10 mg Route: IVP; Site: left antecubital; eh3 23:56 Follow up: Response: Marked relief of symptoms eh3 23:19 Drug: Benadryl (diphenhydrAMINE) 25 mg Route: IVP; Site: left antecubital; eh3 23:56 Follow up: Response: Marked relief of symptoms eh3 Disposition: 11/14 04:36 Co-signature as Attending Physician, José Miguel Wyman MD I agree with the assessment and kdr plan of care. Disposition Summary: 11/13/22 23:57 Discharge Ordered Location: Home cp Problem: new cp Symptoms: have improved cp Condition: Stable cp Diagnosis - Hypertensive heart disease without heart failure cp - Headache cp Followup: cp - With: Private Physician - When: 2 - 3 days - Reason: Recheck today's complaints Discharge Instructions: - Discharge Summary Sheet cp - General Headache Without Cause cp - Hypertension, Adult cp - Aspirin and Your Heart cp - Form - Blood Pressure Record Sheet cp - How to Take Your Blood Pressure cp Forms: - Medication Reconciliation Form cp - Thank You Letter cp - Antibiotic Education cp - Prescription Opioid Use cp Prescriptions: - Lisinopril 20 mg Oral Tablet - take 1 tablet by ORAL route once daily; 20 tablet; Refills: 0, Product cp Selection Permitted Signatures: Dispatcher [employer] EDJosé Miguel Lawrence MD MD kdr Page, Corey, PA PA cp Hall, Erin RN RN eh3 Shira del valle RN RN pf1
[2022-11-14 01:21] VITALS: TEMP 97.8
[2022-11-14 01:24] VITALS: O2SAT 98
[2022-11-14 01:25] VITALS: BP 139/88
--- NOTE | 2022-11-14 15:21 | EKG ---
Test Date: 2022-11-13 Test Time: 21:33:06 Studio Camera Operator: JAQUI MEASUREMENT RESULTS: Intervals: Rate: 77 IN: 150 QRSD: 92 QT: 378 QTc: 427 [facility]: P: 49 IN: 150 QRS: 69 T: 60 INTERPRETIVE STATEMENTS: Normal sinus rhythm Normal ECG Compared to ECG 08/14/2020 10:27:38 Sinus tachycardia no longer present Right-axis deviation no longer present Electronically Signed On 11-14-22 15:19:23 DIE HARDENER by Zander Schuster
== END 2022-11-14 00:15 | disposition home or self-care (01) ==
LOC: ER 19:55
DX: I11.9 Hypertensive heart disease without heart failure (principal); R51.9 Headache, unspecified
CPT/HCPCS: 93005; 85025; 80048; 36415; 83735; 85610; 84484; 83880; 70450; 71045; 96375; 96374; 99284; J2765; J1200

== ENCOUNTER 2023-05-25 09:22 | Emergency (ER) | payer OTHER ==
--- OUTSIDE RECORDS SUMMARY | 2023-05-25 09:27 | XMS REPORT | Continuity of Care Document ---
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 Problems Condition Condition Condition Status Onset Resolution Last Treating Co mments Source Name Details Category Date Date Treatment Clinician Date 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 3-28 Seybold 00:00: - 00 Externa l Class 1 Class 1 Disease Active Edwige obesity obesity 3-13 Seybold due to due to 00:00: - excess excess 00 Externa calories calories l with with serious serious comorbidit comorbidit y and body y and body mass index mass index (BMI) of (BMI) of 34.0 to 34.0 to 34.9 in 34.9 in adult adult Bunion of Bunion of Disease Active Kuldeep sey great toe great toe 3-13 Seyb old of right of right 00:00: - foot foot 00 Externa l Asymptomat 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 Social History Social Habit Start Date Stop Date Quantity Comments Source Gender identity Edwige stewart - External Sexual orientation Edwige Gallo - External Alcohol intake 2023-04-08 2023-04-08 Lifetime Edwige Marte bold 00:00:00 00:00:00 non-drinker - External (finding) Tobacco use and 2022-12-03 2022-12-03 Smokeless tobacco Ke paolo Tseybold exposure 00:00:00 00:00:00 non-user - External History of Social 2022-12-03 2022-12-03 Edwige Gallo function 00:00:00 00:00:00 - External Education 2022-12-03 2022-12-03 17 Edwige Gallo 00:00:00 00:00:00 - External Sex Ass[birth year] At [birth year] Edwige stewart 00:00:00 00:00:00 - External Smoking Status Start Date Stop Date Source Never smoked tobacco Edwige Clayton old - External Medications Ordered Filled Start Stop Current Ordering Indication Dosage Frequency Signature Comments Components Source Medication Medication Date Date Medication? Clinician (SIG) Name Name Ondansetron Yes [id number] 4mg Take 1 Edwige HCl 4 MG 3-28 tablet (4 Seybol d oral Tablet 00:00: mg total) - 00 by mouth Externa every 12 l hours as needed for nausea Ondansetron 2022- No [id number] 4mg Take 1 Edwige HCl 4 MG 3-28 04-08 tablet (4 Seybo ld oral Tablet 00:00: 00:00 mg total) - 00 :00 by mouth Externa every 12 l hours as needed for nausea Ciclopirox Yes [id number] Apply to Edwige 8 % apply 3-15 bilaterall Seyb old externally 00:00: y foot - Solution 00 daily to Externa the l affected area. Diclofenac Yes [id number] 1g Apply 1 g Edwige Sodium 3-15 topically Seybold (Voltaren) 00:00: 3 to 4 - 1 % apply 00 times Externa externally daily l Gel Ciclopirox 2022-0 Yes [id number] Apply to Edwige 8 % apply 3-15 bilaterall Seyb old externally 00:00: y foot - Solution 00 daily to Externa the l affected area. Diclofenac 2022-0 Yes [id number] 1g Apply 1 g Edwige Sodium 3-15 topically Seybold (Voltaren) 00:00: 3 to 4 - 1 % apply 00 times Externa externally daily l Gel Diclofenac 2022-0 Yes [id number] 1g Apply 1 g Edwige Sodium 3-15 topically Seybold (Voltaren) 00:00: 3 to 4 - 1 % apply 00 times Externa externally daily l Gel Ciclopirox 0 2022- No [id number] Apply to Edwige 8 % apply 3-15 -17 bilaterall Sey bold externally 00:00: 00:00 y foot - Solution 00 :00 daily to Externa the l affected area. Lisinopril 2022-0 2022- No 20mg Take 20 mg Ediwge 20 MG oral 3-13 03-13 by mouth Seyb old Tablet 10:33: 00:00 daily - 51 :00 Externa l Lisinopril 2022-0 Yes [id number] 20mg Take 1 K elsey 20 MG oral 3-13 tablet (20 Sey bold Tablet 00:00: mg total) - 00 by mouth Externa daily l Lisinopril 2022-0 Yes [id number] 20mg Take 1 K elsey 20 MG oral 3-13 tablet (20 Sey bold Tablet 00:00: mg total) - 00 by mouth Externa daily l Lisinopril 2022-0 Yes [id number] 20mg Take 1 K elsey 20 MG oral 3-13 tablet (20 Sey bold Tablet 00:00: mg total) - 00 by mouth Externa daily l Lisinopril 2022-0 Yes [id number] 20mg Take 1 K elsey 20 MG oral 3-13 tablet (20 Sey bold Tablet 00:00: mg total) - 00 by mouth Externa daily l Immunizations Ordered Immunization Filled Immunization Date Status Commen ts Source Name Name Tdap- (Boostrix, 2023-04-08 Completed Edwige quinonezld Adacel) 00:00:00 - External Shingles IM 2023-04-08 Completed Edwige Shahid d (Shingrix) 00:00:00 - External Influenza, 2021-07-07 Completed Edwige Gallo Injectable, Mdck, 00:00:00 - Exter nal Quadrivalent With Preservatie Influenza, 2021-07-07 Completed Edwige Claytonold Injectable, Mdck, 00:00:00 - Exter nal Quadrivalent With Preservatie Influenza, 2021-07-07 Completed Edwige Tseybold Injectable, Mdck, 00:00:00 - Exter nal Quadrivalent With Preservatie Influenza, 2021-07-07 Completed Edwige Claytonold Injectable, Mdck, 00:00:00 - Exter nal Quadrivalent With Preservatie Vital Signs Vital Name Observation Time Observation Value Comments Source Systolic blood 2023-04-08 18:36:00 131 mm[Hg] Edwige Tseybold - pressure External Diastolic blood 2023-04-08 18:36:00 82 mm[Hg] Marcelo dupont Seybold - pressure External Heart rate 2023-04-08 18:36:00 80 /min Edwige hallbonazario - External Body temperature 2023-04-08 18:36:00 36.72 Jennifer Marilee Gallo - External Respiratory rate 2023-04-08 18:36:00 14 /min Marilee Gallo - External Body height 2023-04-08 18:36:00 165.1 cm Edwige rios - External Body weight 2023-04-08 18:36:00 94.802 kg Edwige rios - External BMI 2023-04-08 18:36:00 34.78 kg/m2 Edwige hallbonazario - External Oxygen saturation in 2023-04-08 18:36:00 99 /min Edwige Gallo - Arterial blood by External Pulse oximetry Systolic blood 2022-12-18 18:46:00 128 mm[Hg] Edwige Gallo - pressure External Diastolic blood 2022-12-18 18:46:00 84 mm[Hg] Marcelo dupont Seybold - pressure External Heart rate 2022-12-18 18:46:00 101 /min Edwige S eybold - External Body temperature 2022-12-18 18:46:00 37.56 Jennifer Marilee ey Seybold - External Respiratory rate 2022-12-18 18:46:00 14 /min Marilee ey Seybold - External Body height 2022-12-18 18:46:00 165.1 cm Edwige S eybold - External Body weight 2022-12-18 18:46:00 93.441 kg Edwige Mensah eybold - External BMI 2022-12-18 18:46:00 34.28 kg/m2 Edwige Mensah eybold - External Oxygen saturation in 2022-12-18 18:46:00 96 /min Edwige Seybold - Arterial blood by External Pulse oximetry Body height 2022-12-05 15:31:00 165.1 cm Edwige Mensah eybold - External Body weight 2022-12-05 15:31:00 86.637 kg Edwige Mensah eybold - External BMI 2022-12-05 15:31:00 31.78 kg/m2 Edwige S eybold - External Systolic blood 2022-12-03 15:19:00 133 mm[Hg] Edwige Seybold - pressure External Diastolic blood 2022-12-03 15:19:00 81 mm[Hg] Kuldeepse y Seybold - pressure External Heart rate 2022-12-03 15:19:00 113 /min Edwige Mensah eybold - External Body temperature 2022-12-03 15:19:00 36.78 Jennifer Marilee ey Seybold - External Respiratory rate 2022-12-03 15:19:00 14 /min Marilee hall Seybold - External Body height 2022-12-03 15:19:00 165.1 cm Edwige Mensah eybold - External Body weight 2022-12-03 15:19:00 86.637 kg Edwige Mensah eybold - External BMI 2022-12-03 15:19:00 31.78 kg/m2 Edwige Mensah eybold - External Oxygen saturation in 2022-12-03 15:19:00 99 /min Edwige Seybold - Arterial blood by External Pulse oximetry Procedures This patient has no known procedures. Encounters Start End Encounter Admission Attending Care Care Encounter Source Date/Time Date/Time Type Type Clinicians Facility Department ID 2023-10-09 2023-10-09 Outpatient PREZAS EDWIGE CHAVEZ [id number] Ediwge 14:30:00 14:30:00 BRANDEN Seybol d 2023-04-09 2023-04-09 Outpatient LAB90 EDWIGE CHAVEZ [id number] Edwige 08:10:00 08:10:00 Seybol d 2023-04-08 2023-04-08 Outpatient PREZASEDWIGE [id number] Ed[place]ige 14:00:00 14:00:00 BRANDEN Seybol d 2023-03-19 2023-03-19 Outpatient DAVIDEDWIGE [id number] [place] 14:15:00 14:15:00 SAY Seybol d 2023-03-05 2023-03-05 Outpatient PREZAEDWIGE Mensah [id number] [place]ige 16:00:00 16:00:00 BRANDEN Seybol d 2022-12-18 2022-12-18 Outpatient PREZAS, EDWIGE CHAVEZ [id number] [place] 14:00:00 14:00:00 BRANDEN Seybol d 2022-12-05 2022-12-05 Outpatient KRISS, EDWIGE CHAVEZ [id number] [place] 10:20:00 10:20:00 RADHA Seybol d 2022-12-04 2022-12-04 Outpatient PREZAEDWIGE Mensah [id number] [place]ige 00:00:00 00:00:00 BRANDEN Seybol d 2022-12-03 2022-12-03 Outpatient PREZAEDWIGE Mensah [id number] Edwige 10:30:00 10:30:00 BRANDEN Seybol d 2022-11-29 2022-11-29 Outpatient PREZASEDWIGE [id number] Edwige 00:00:00 00:00:00 BRANDEN Seybol d Results This patient has no known results.
[2023-05-25] MEDS ORDERED: SMZ./TMP. 800/160 MG TABLET ONE (10:27)
[2023-05-25] MEDS ORDERED: PHENAZOPYRIDINE 100MG TAB PO ONE (10:27)
[2023-05-25 10:31] LABS: Specific Gravity < 1.005 (1.005-1.030); Urine Bacteria None Seen /HPF (<20); Urine Bilirubin NEGATIVE (Negative); Urine Blood 3+ (OVER) (Negative); Urine Clarity Turbid (Clear); Urine Color Colorless (Yellow); Urine Glucose NEGATIVE (Negative); Urine Protein NEGATIVE (Negative); Urine RBC None Seen /HPF (None Seen); Urine Urobilinogen Normal (Normal); Urine pH 6.5 (5.0-7.0)
--- NOTE | 2023-05-25 11:11 | ER ---
Nurse's Notes [facility] Name: Cari Mccarty Age: 48 yrs Sex: Female : 1975 Arrival Date: 05/25/2023 Time: 09:22 Bed 18 Private MD: Diagnosis: UTI/ Urinary tract infection, site not specified Presentation: 05/25 09:36 Chief complaint: Patient states: "Today around 5am, I started having blood in my urine mb9 and having painful urination, it feels like burning. I don't have stomach or back pain". Coronavirus screen: Vaccine status: Patient reports receiving the 2nd dose of the covid vaccine. Ebola Screen: No symptoms or risks identified at this time. Initial Sepsis Screen: Does the patient meet any 2 criteria? No. Patient's initial sepsis screen is negative. Does the patient have a suspected source of infection? No. Patient's initial sepsis screen is negative. Risk Assessment: Do you want to hurt yourself or someone else? Patient reports no desire to harm self or others. Onset of symptoms was May 25, 2023. 09:36 Method Of Arrival: Ambulatory mb9 09:36 Acuity: DAVID 3 mb9 Triage Assessment: 09:39 General: Appears in no apparent distress. Behavior is calm, cooperative. Pain: Denies mb9 pain. Neuro: Kumari Agitation-Sedation Scale (RASS): 0 - Alert and Calm Level of Consciousness is awake, alert, obeys commands, Oriented to person, place, time, situation, Appropriate for age. Respiratory: Airway is patent Respiratory effort is even, unlabored, Respiratory pattern is regular, symmetrical. GI: Abdomen is round non-distended, Bowel sounds present X 4 quads. Patient currently denies pain. : Reports burning with urination, vaginal bleeding that is bright red, moderate flow. Derm: Skin is pink, warm \\T\\ dry. Musculoskeletal: Range of motion: intact in all extremities. 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 - Social history:: Smoking status: Patient denies any tobacco usage or history of. Screenin:29 [facility] ED Fall Risk Assessment (Adult) History of falling in the last 3 months, db including since admission No falls in past 3 months (0 pts) Confusion or Disorientation No (0 pts) Intoxicated or Sedated No (0 pts) Impaired Gait No (0 pts) Mobility Assist Device Used No (0 pt) Altered Elimination No (0 pt) Score/Fall Risk Level 0 - 2 = Low Risk Oriented to surroundings, Maintained a safe environment. Abuse screen: Denies threats or abuse. Denies injuries from another. Nutritional screening: No deficits noted. Tuberculosis screening: No symptoms or risk factors identified. Assessment: 09:41 Reassessment: Patient appears in no apparent distress at this time. Patient and/or db family updated on plan of care and expected duration. Pain level reassessed. Patient is alert, oriented x 3, equal unlabored respirations, skin warm/dry/pink. PATIENT AMBULATORY TO RESTROOM. 11:29 Reassessment: Patient appears in no apparent distress at this time. Patient and/or db family updated on plan of care and expected duration. Pain level reassessed. Patient is alert, oriented x 3, equal unlabored respirations, skin warm/dry/pink. General: Appears in no apparent distress. comfortable, Behavior is calm, cooperative. Neuro: Level of Consciousness is awake, alert, obeys commands, confused, Oriented to person, place, time, situation. Respiratory: Airway. : Reports burning with urination. 11:29 Respiratory: No deficits noted. Airway is patent Respiratory effort is even, unlabored, db Respiratory pattern is regular, symmetrical. Vital Signs: 09:36 BP 156 / 104; Pulse 84; Resp 18; Temp 98.5; Pulse Ox 100% ; Weight 86.18 kg; Height 5 mb9 ft. 5 in. ; Pain 0/10; 11:29 BP 154 / 98; Pulse 82; Resp 16; Pulse Ox 100% on R/A; db 09:36 Body Mass Index 31.62 (86.18 kg, 165.1 cm) mb9 09:36 Pain Scale: Adult mb9 ED Course: 09:25 Patient arrived in ED. im 09:26 José Miguel Wyman MD is Attending Physician. kdr 09:38 Triage completed. mb9 09:38 Arm band placed on. mb9 09:41 Tanesha Boone, RN is Primary Nurse. db 10:15 Urine collected: clean catch specimen, clear. db 11:29 Patient has correct armband on for positive identification. Bed in low position. Call db light in reach. Side rails up X 1. Provided Education on: DISCHARGE. 11:29 No provider procedures requiring assistance completed. Patient did not have IV access db during this emergency room visit. Administered Medications: 10:12 Drug: Phenazopyridine PO 200 mg Route: PO; db 11:31 Follow up: Response: No adverse reaction db 10:15 Drug: Trimethoprim-Sulfamethoxazole PO (160 mg-800 mg (DS) 1 tablet Route: PO; db 11:31 Follow up: Response: No adverse reaction db Medication: 11:29 VIS not applicable for this client. db Outcome: 11:11 Discharge ordered by . kdr 11:29 Discharged to home ambulatory. db 11:29 Condition: stable 11:29 Discharge instructions given to patient, Instructed on discharge instructions, follow up and referral plans. Prescriptions given X 2. 11:31 Patient left the ED. db Signatures: José Miguel Wyman MD MD kdr Tanesha Boone, RN RN db Alicia Robles, RN RN mb9 Lety Velazco Corrections: (The following items were deleted from the chart) 09:40 09:36 Pulse 84bpm; Resp 18bpm; Pulse Ox 100%; Temp 98.5F; 86.18 kg; Height 5 ft. 5 in.; mb9 BMI: 31.6; Pain 0/10, Adult; mb9 09:40 09:36 Acuity: DAVID 4 mb9 mb9 10:25 10:25 Phenazopyridine PO 200 mg PO db db
--- NOTE | 2023-05-25 11:12 | EDPHYS ---
Physician Documentation [facility] Name: Cari Mccarty Age: 48 yrs Sex: Female : 1975 Arrival Date: 05/25/2023 Time: 09:22 Bed 18 Private MD: ED Physician José Miguel Wyman HPI: 05/25 11:36 This 48 yrs old Female presents to ER via Ambulatory with complaints of Pain kdr With Urination. 11:38 Patient states that this morning she had pain with urination and also blood in her kdr urine. She had this 1 time back in late March. Otherwise she does not normally get urinary tract infections. The patient is nontoxic-appearing and otherwise does not require emergent intervention or treatment. Onset: The symptoms/episode began/occurred this morning. Severity of symptoms: At their worst the symptoms were mild moderate in the emergency department the symptoms are unchanged. The patient has experienced a previous episode, last month. The patient has not recently seen a physician. [employer]GER: 11:31 LMP N/A - Hysterectomy db Historical: - Allergies: 09:38 No Known Allergies; mb9 - Home Meds: 09:38 Lisinopril Oral [Active]; mb9 - PMHx: 09:38 Hypertensive disorder; mb9 - PSHx: 09:38 Total abdominal hysterectomy; section; mb9 - Immunization history:: Adult Immunizations up to date. - Social history:: Smoking status: Patient denies any tobacco usage or history of. ROS: 11:38 Constitutional: Negative for fever, chills, and weight loss, Eyes: Negative for injury, kdr pain, redness, and discharge, ENT: Negative for injury, pain, and discharge, Neck: Negative for injury, pain, and swelling, Cardiovascular: Negative for chest pain, palpitations, and edema, Respiratory: Negative for shortness of breath, cough, wheezing, and pleuritic chest pain, Abdomen/GI: Negative for abdominal pain, nausea, vomiting, diarrhea, and constipation, Back: Negative for injury and pain, MS/Extremity: Negative for injury and deformity, Skin: Negative for injury, rash, and discoloration, Neuro: Negative for headache, weakness, numbness, tingling, and seizure activity. Psych: Negative for depression, anxiety, suicide ideation, homicidal ideation, and hallucinations, Allergy/Immunology: Negative for hives, rash, and allergies, Endocrine: Negative for neck swelling, polydipsia, polyuria, polyphagia, and marked weight changes, Hematologic/Lymphatic: Negative for swollen nodes, abnormal bleeding, and unusual bruising. 11:38 : Positive for urinary symptoms, urinary frequency, small amounts, hematuria, burning with urination, difficulty urinating. Exam: 11:38 Constitutional: This is a well developed, well nourished patient who is awake, alert, kdr and in no acute distress. Head/Face: Normocephalic, atraumatic. Eyes: Pupils equal round and reactive to light, extra-ocular motions intact. Lids and lashes normal. Conjunctiva and sclera are non-icteric and not injected. Cornea within normal limits. Periorbital areas with no swelling, redness, or edema. Neck: Trachea midline, no thyromegaly or masses palpated, and no cervical lymphadenopathy. Supple, full range of motion without nuchal rigidity, or vertebral point tenderness. No Meningismus. Chest/axilla: Normal chest wall appearance and motion. Nontender with no deformity. No lesions are appreciated. Cardiovascular: Regular rate and rhythm with a normal S1 and S2. No gallops, murmurs, or rubs. Normal PMI, no JVD. No pulse deficits. Respiratory: Lungs have equal breath sounds bilaterally, clear to auscultation and percussion. No rales, rhonchi or wheezes noted. No increased work of breathing, no retractions or nasal flaring. Back: No spinal tenderness. No costovertebral tenderness. Full range of motion. Skin: Warm, dry with normal turgor. Normal color with no rashes, no lesions, and no evidence of cellulitis. MS/ Extremity: Pulses equal, no cyanosis. Neurovascular intact. Full, normal range of motion. Neuro: Awake and alert, GCS 15, oriented to person, place, time, and situation. Cranial nerves II-XII grossly intact. Motor strength 5/5 in all extremities. Sensory grossly intact. Cerebellar exam normal. Normal gait. Psych: Awake, alert, with orientation to person, place and time. Behavior, mood, and affect are within normal limits. Vital Signs: 09:36 BP 156 / 104; Pulse 84; Resp 18; Temp 98.5; Pulse Ox 100% ; Weight 86.18 kg; Height 5 mb9 ft. 5 in. ; Pain 0/10; 11:29 BP 154 / 98; Pulse 82; Resp 16; Pulse Ox 100% on R/A; db 09:36 Body Mass Index 31.62 (86.18 kg, 165.1 cm) mb9 09:36 Pain Scale: Adult mb9 MDM: 11:11 Patient medically screened. kdr 11:38 Data reviewed: vital signs, nurses notes, lab test result(s). kdr 05/25 10:27 Order name: Urinalysis w/ reflexes; Complete Time: 11:01 EDMS Administered Medications: 10:12 Drug: Phenazopyridine PO 200 mg Route: PO; db 11:31 Follow up: Response: No adverse reaction db 10:15 Drug: Trimethoprim-Sulfamethoxazole PO (160 mg-800 mg (DS) 1 tablet Route: PO; db 11:31 Follow up: Response: No adverse reaction db Disposition Summary: 05/25/23 11:11 Discharge Ordered Location: Home kdr Problem: new kdr Symptoms: have improved kdr Condition: Stable kdr Diagnosis - UTI/ Urinary tract infection, site not specified kdr Followup: kdr - With: Private Physician - When: 2 - 3 days - Reason: If symptoms return, Further diagnostic work-up, Recheck today's complaints, Continuance of care, Re-evaluation by your physician Discharge Instructions: - Discharge Summary Sheet kdr - Dysuria kdr - Urinary Tract Infection, Adult, [id number] kdr Forms: - Medication Reconciliation Form kdr - Thank You Letter kdr - Antibiotic Education kdr - Patient Portal Instructions kdr - Leadership Thank You Letter kdr Prescriptions: - Pyridium 200 mg Oral Tablet - take 1 tablet by ORAL route every 8 hours for 3 days; 9 tablet; Refills: 0, kdr Product Selection Permitted - Bactrim DS 800-160 mg Oral Tablet - take 1 tablet by ORAL route every 12 hours for 7 days; 14 tablet; Refills: 0, kdr Product Selection Permitted Signatures: Dispatcher [employer] EDLA José Miguel Wyman MD MD kdr Tanesha Boone RN RN db Alicia Robles RN RN mb9
[2023-05-25 11:40] VITALS: TEMP 98.5; O2SAT 100
[2023-05-25 11:47] VITALS: BP 154/98
== END 2023-05-25 11:31 | disposition home or self-care (01) ==
LOC: ER 09:22
DX: N39.0 Urinary tract infection, site not specified (principal); I10 Essential (primary) hypertension
CPT/HCPCS: 81001; 99283